=== PATIENT | female | born 1980 | race Caucasian/White ===

== ENCOUNTER → 2018-05-30 | Outpatient (CLI) | payer BC ==
[~2018-05-30] MED LIST: MOTRIN 600600 MG/TAB PO; PRENATAL 191 TAB PO
== END ==
LOC: COL.RAD 12:26
DX: Z30.431 Encounter for routine checking of intrauterine contraceptive device (principal)

== ENCOUNTER 2019-11-16 19:03 | Emergency (ER) | payer BC ==
[~2019-11-16] VITALS: Ht 180.3 cm; Wt 92.7 kg
[2019-11-16 19:17] VITALS: BP 129/74; TEMP 97.9
[2019-11-16 20:50] LABS: BASO # 0.1 (0.0-0.2); BASO % 0.5 % (0.0-2.0); EOS # 0.3 (0.0-0.7); EOS % 2.4 % (0-4.0); GRAN # 9.2 (1.4-6.5); GRAN % 69.3 % (42.2-75.2); HEMATOCRIT 39.5 % (37.0-47.0); HEMOGLOBIN 12.8 g/dl (12.5-16.0); LYMPH # 2.6 (1.2-3.4); LYMPH % 19.6 % (20.0-51.0); MEAN CELL VOLUME 88 fl (80.0-100.0); MEAN CORPUSCULAR HEMOGLOBIN 28 pg (27.0-31.0); MEAN CORPUSCULAR HGB CONC 32 g/dl (33.0-37.0); MEAN PLATELET VOLUME 9.8 fl (7.4-10.4); MONO % 7.8 % (1.7-9.3); PLATELET COUNT 283 K/mm3 (130-400); RED BLOOD COUNT 4.51 M/mm3 (4.10-5.30); REDCELL DISTRIBUTION WIDTH-CV 12.9 % (11.5-14.5)
[2019-11-16 21:01] LABS: ALBUMIN 4.4 gm/dL (3.5-5.0); BILIRUBIN,TOTAL 0.3 mg/dL (0.0-1.0); CALCIUM 9.2 mg/dL (8.4-10.2); CREATININE, serum 0.96 (0.52-1.25); POTASSIUM 4.5 mmol/L (3.4-5.0); TOTAL PROTEIN 7.3 gm/dL (6.4-8.2)
[2019-11-16] MEDS ORDERED: FLEXERIL 1010 MG/TAB PO (22:21)
[2019-11-16 22:40] VITALS: PULSE 88
== END 2019-11-16 22:42 | disposition home or self-care (01) ==
LOC: COL.ER 19:03
PROVIDERS: Emergency Medicine
DX: R20.2 Paresthesia of skin (principal); M54.6 Pain in thoracic spine; Z90.89 Acquired absence of other organs
CPT/HCPCS: J1885

== ENCOUNTER → 2020-11-06 | Outpatient (CLI) | payer BC ==
[~2020-11-06] MED LIST changes: +FLEXERIL 1010 MG/TAB PO
== END ==
LOC: MC.RAD 14:11
DX: Z12.31 Encounter for screening mammogram for malignant neoplasm of breast (principal); N63.20 Unspecified lump in the left breast, unspecified quadrant

== ENCOUNTER → 2020-11-13 | Outpatient (CLI) | payer BC | LOC: MC.RAD 12:50 | DX: N63.20 Unspecified lump in the left breast, unspecified quadrant (principal) ==

== ENCOUNTER → 2020-12-03 | Outpatient (CLI) | payer BC | LOC: MC.RAD 07:53 | DX: N63.20 Unspecified lump in the left breast, unspecified quadrant (principal); Z98.82 Breast implant status ==

== ENCOUNTER → 2021-08-12 | Outpatient (CLI) | payer BC ==
[~2021-08-12] MED LIST changes: +KLONOPIN 0.5MG0.5 MG PO; +LAMICTAL 100MG100 MG
== END ==
LOC: COL.CARD 07:35
DX: R00.2 Palpitations (principal)

== ENCOUNTER 2021-08-17 11:16 | Emergency (ER) | payer BC ==
[~2021-08-17] VITALS: Ht 180.3 cm; Wt 100.0 kg
[~2021-08-17 11:16] MED LIST changes: -KLONOPIN 0.5MG0.5 MG PO; -LAMICTAL 100MG100 MG
[2021-08-17 11:49] VITALS: TEMP 97.6
[2021-08-17] MEDS ORDERED: KLONOPIN 0.5MG0.5 MG PO (12:00)
[2021-08-17] MEDS ORDERED: LAMICTAL 100MG100 MG (12:00)
[2021-08-17 12:12] LABS: BASO # 0.1 K/mm3 (0.0-0.2); BASO % 0.8 % (0.0-2.0); EOS # 0.3 K/mm3 (0.0-0.7); EOS % 3.4 % (0-4.0); HEMATOCRIT 40.9 % (37.0-47.0); HEMOGLOBIN 13.7 g/dl (12.5-16.0); LYMPH # 1.8 K/mm3 (1.2-3.4); LYMPH % 22.9 % (20.0-51.0); MEAN CELL VOLUME 86 fl (80.0-100.0); MEAN CORPUSCULAR HEMOGLOBIN 29 pg (27.0-31.0); MEAN CORPUSCULAR HGB CONC 34 g/dl (33.0-37.0); MEAN PLATELET VOLUME 9.6 fl (7.4-10.4); MONO # 0.8 K/mm3 (0.1-0.6); MONO % 10.4 % (1.7-9.3); PLATELET COUNT 292 K/mm3 (130-400); RED BLOOD COUNT 4.74 M/mm3 (4.10-5.30); REDCELL DISTRIBUTION WIDTH-CV 12.8 % (11.5-14.5)
[2021-08-17 12:22] LABS: INR 1.1 (0.8-3.0); PROTHROMBIN TIME 11.9 SECONDS (9.7-12.8)
[2021-08-17 12:25] LABS: PARTIAL THROMBOPLASTIN TIME 34.5 SECONDS (26.0-37.0)
[2021-08-17 12:30] LABS: ALANINE AMINOTRANSFERASE 18 U/L (0-55); ALBUMIN 4.3 gm/dL (3.5-5.0); ALKALINE PHOSPHATASE 72 U/L (40-150); ANION GAP 12 mmol/L (7-16); AST,SGOT 17 U/L (5-34); BILIRUBIN,TOTAL 0.6 mg/dL (0.2-1.2); BLOOD UREA NITROGEN 6 mg/dL (7-19); CALCIUM 9.7 mg/dL (8.4-10.2); CARBON DIOXIDE 25 mmol/L (22-29); CHLORIDE 107 mmol/L (98-107); CREATININE, serum 0.83 mg/dL (0.57-1.11); GLUCOSE 73 mg/dL (70-99); POTASSIUM 4.1 mmol/L (3.5-4.5); SODIUM 144 mmol/L (136-145); TOTAL PROTEIN 7.5 gm/dL (6.2-8.1)
[2021-08-17 12:38] LABS: TROPONIN-I < 0.010 ng/mL (0.00-0.033)
[2021-08-17 13:58] VITALS: BP 106/70; PULSE 84
== END 2021-08-17 13:58 | disposition home or self-care (01) ==
LOC: COL.ER 11:16
PROVIDERS: Family Medicine
DX: R06.02 Shortness of breath (principal); Z20.822 Contact with and (suspected) exposure to COVID-19

== ENCOUNTER → 2021-10-28 | Outpatient (CLI) | payer BC ==
[~2021-10-28] MED LIST changes: +KLONOPIN 0.5MG0.5 MG PO; +LAMICTAL 100MG100 MG
== END ==
LOC: COL.RAD 07:44
DX: R74.01 Elevation of levels of liver transaminase levels (principal)

== ENCOUNTER 2022-01-23 13:45 | Outpatient (RCR) | payer BC | END 2022-02-10 | disposition home or self-care (01) | LOC: MKS.ESL.OT | DX: G56.03 Carpal tunnel syndrome, bilateral upper limbs (principal) ==

== ENCOUNTER → 2024-01-18 | Outpatient (CLI) | payer BC | LOC: MC.RAD 13:39 | DX: N63.10 Unspecified lump in the right breast, unspecified quadrant (principal) ==